=== PATIENT | female | born 1960 | race Caucasian/White ===

== ENCOUNTER 2016-11-15 13:03 | Emergency (ER) | payer OTHER ==
[~2016-11-15 13:03] MED LIST: FLUOXETINE HCL20 MG PO; NITROFURANTOIN50 MG PO; VICODIN EQUIVAL1 TAB PO; XANAX0.25 MG PO
--- NOTE | 2016-11-15 13:37 | ED ORDER SUMMARY ---
..... Patient: TAZ BURDEN OrderSheet [facility] VisitID: [id number] [address] [place] [address] 56y, F Registration Date/Time: 11/15/2016 ORDER SHEET Weight: 134.7 kg (stated) Allergies: Iodine, Morphine Sulfate, Ultram GENERAL ORDERS: Sling - arm (13:24 11/15/2016 [address]) MEDICATION ORDERS: Percocet PO 5/325 mg (HIGH ALERT MEDICATION, NOW) (13:19 11/15/2016 [address]) (Ack 13:31 SStone R.N.) (13:31 SStone R.N.) IV FLUIDS: ORDER SHEET NOTES: [Electronically signed by Patti Lucero P.A.-C (13:48 11/15/2016)] [Electronically signed by Arleth Blair R.N. (10:42 11/19/2016)] [Electronically locked/signed by Arleth Blair R.N. (10:42 11/19/2016)]
--- NOTE | 2016-11-15 13:37 | ED ORDER SUMMARY ---
..... Patient: TAZ BURDEN OrderSheet [facility] VisitID: [id number] [address] [place] [address] 56y, F Registration Date/Time: 11/15/2016 ORDER SHEET Weight: 134.7 kg (stated) Allergies: Iodine, Morphine Sulfate, Ultram GENERAL ORDERS: Sling - arm (13:24 11/15/2016 [address]) MEDICATION ORDERS: Percocet PO 5/325 mg (HIGH ALERT MEDICATION, NOW) (13:19 11/15/2016 [address]) (Ack 13:31 SStone R.N.) (13:31 SStone R.N.) IV FLUIDS: ORDER SHEET NOTES: [Electronically signed by Patti Lucero P.A.-C (13:48 11/15/2016)] [Electronically signed by Arleth Blair R.N. (10:42 11/19/2016)] [Electronically locked/signed by Arleth Blair R.N. (10:42 11/19/2016)]
--- NOTE | 2016-11-15 13:37 | ED CLINICAL REPORT ---
Clinical Report - Physicians/Mid Levels [facility] [address] [place] [address] 11/15/2016 13:07 [id number] Time Seen: 13:28 Nov 15 2016. Arrived- By private vehicle. Historian- patient. 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 Patient is experiencing moderate pain. Patient also notes injury to the neck. Patient denies injury to the head. ( fell on ice 2 weeks prior to arrival, and had her fianc fall on her as well. Injury and impact was to r. shoulder. Prior shoulder injury including prior surgery/ decompression). REVIEW OF SYSTEMS No tingling or numbness. All systems otherwise negative, except as recorded above. PAST HISTORY The patient's dominant hand is the right. She has had a prior injury to the same area (2x with prior surgical h/o). Tetanus immunization status is up-to-date. SOCIAL HISTORY No alcohol use or drug use. ADDITIONAL NOTES The nursing notes have been reviewed. PHYSICAL EXAM Vital Signs: 11/15/2016 13:12 BP: 154/69. HR: 62. RR: 18. O2 saturation: 100%. Temp: 98.2 F. Appearance: Alert. No acute distress. but apparent distress. Does not appear to be anxious. Head: Head atraumatic. ENT: Ears normal. Neck: Normal inspection. Neck supple. CVS: Normal heart rate and rhythm. Heart sounds normal. Respiratory: No respiratory distress. Breath sounds normal. Back: Normal inspection. No vertebral point tenderness. Skin: Skin warm. Normal skin color. Extremities: Extremity tenderness. Right clavicle area. No tenderness or swelling. Right shoulder. No tenderness or swelling. Right acromion: No tenderness or swelling. Right acromio-clavicular joint: mild tenderness. No swelling, laceration or abrasion. Right proximal humerus: No tenderness or swelling. Shoulder injury present. (pain with elevation, no deformity, good distal sensation.). Neuro, Vascular and Tendons: Sensory deficit present. Motor deficit present. Vascular deficit present. Tendon deficit present. Tendon visualized, uninjured. Neuro: Oriented X 3. PROGRESS AND PROCEDURES PROCEDURES (sling, r. shoulder, ns intact). Course of Care: at this time attempted to call patient's primary care office to see in regards to MRI order, and to attempt to schedule such outpatient. Had lengthy discussion with patient in regard to emergency room versus non-emergent MRI, and at this time unable to complete her MRI of her shoulder status post a fall 2 weeks previously. Patient was offered an x-ray, however I do suspect this would give us minimal increase and insight into her injury as this occurred 2 weeks previously, and fracture is low suspicion was rather internal injury including rotator cuff injury most likely. Patient is stable. Physical exam findings are improved. Symptoms better. Patient/family counseled. Disposition: Discharged. CLINICAL IMPRESSION Sprain of the right AC joint and rotator cuff. INSTRUCTIONS Apply ice. Elevate affected areas above chest level. Limit use of your hand. ([place]: [phone]). Prescription Medications: Hydrocodone/APAP 7.5mg / 325mg: take 1 orally every 6 hours as needed for pain. Dispense twelve (12). No refill. Follow-up: Follow up with a specialist. Understanding of the discharge instructions verbalized. (Electronically signed by Patti Lucero P.A.-C 11/15/2016 13:48)
--- NOTE | 2016-11-15 13:37 | ED CLINICAL REPORT ---
Clinical Report - Physicians/Mid Levels [facility] [address] [place] [address] 11/15/2016 13:07 [id number] Time Seen: 13:28 Nov 15 2016. Arrived- By private vehicle. Historian- patient. 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 Patient is experiencing moderate pain. Patient also notes injury to the neck. Patient denies injury to the head. ( fell on ice 2 weeks prior to arrival, and had her fianc fall on her as well. Injury and impact was to r. shoulder. Prior shoulder injury including prior surgery/ decompression). REVIEW OF SYSTEMS No tingling or numbness. All systems otherwise negative, except as recorded above. PAST HISTORY The patient's dominant hand is the right. She has had a prior injury to the same area (2x with prior surgical h/o). Tetanus immunization status is up-to-date. SOCIAL HISTORY No alcohol use or drug use. ADDITIONAL NOTES The nursing notes have been reviewed. PHYSICAL EXAM Vital Signs: 11/15/2016 13:12 BP: 154/69. HR: 62. RR: 18. O2 saturation: 100%. Temp: 98.2 F. Appearance: Alert. No acute distress. but apparent distress. Does not appear to be anxious. Head: Head atraumatic. ENT: Ears normal. Neck: Normal inspection. Neck supple. CVS: Normal heart rate and rhythm. Heart sounds normal. Respiratory: No respiratory distress. Breath sounds normal. Back: Normal inspection. No vertebral point tenderness. Skin: Skin warm. Normal skin color. Extremities: Extremity tenderness. Right clavicle area. No tenderness or swelling. Right shoulder. No tenderness or swelling. Right acromion: No tenderness or swelling. Right acromio-clavicular joint: mild tenderness. No swelling, laceration or abrasion. Right proximal humerus: No tenderness or swelling. Shoulder injury present. (pain with elevation, no deformity, good distal sensation.). Neuro, Vascular and Tendons: Sensory deficit present. Motor deficit present. Vascular deficit present. Tendon deficit present. Tendon visualized, uninjured. Neuro: Oriented X 3. PROGRESS AND PROCEDURES PROCEDURES (sling, r. shoulder, ns intact). Course of Care: at this time attempted to call patient's primary care office to see in regards to MRI order, and to attempt to schedule such outpatient. Had lengthy discussion with patient in regard to emergency room versus non-emergent MRI, and at this time unable to complete her MRI of her shoulder status post a fall 2 weeks previously. Patient was offered an x-ray, however I do suspect this would give us minimal increase and insight into her injury as this occurred 2 weeks previously, and fracture is low suspicion was rather internal injury including rotator cuff injury most likely. Patient is stable. Physical exam findings are improved. Symptoms better. Patient/family counseled. Disposition: Discharged. CLINICAL IMPRESSION Sprain of the right AC joint and rotator cuff. INSTRUCTIONS Apply ice. Elevate affected areas above chest level. Limit use of your hand. ([place]: [phone]). Prescription Medications: Hydrocodone/APAP 7.5mg / 325mg: take 1 orally every 6 hours as needed for pain. Dispense twelve (12). No refill. Follow-up: Follow up with a specialist. Understanding of the discharge instructions verbalized. (Electronically signed by Patti Lucero P.A.-C 11/15/2016 13:48)
--- NOTE | 2016-11-15 13:37 | ED NURSING NOTES ---
Clinical Report - Nurses [facility] [address] [place] [address] 11/15/2016 13:07 [id number] Triage time 13:16 Nov 15 2016. Acuity: LEVEL 4. Chief Complaint: RIGHT UPPER EXTREMITY PAIN. Alert. No acute distress. YENI COMA SCORE: [place] Coma Scale: 15- eyes open spontaneously (4); best verbal response- oriented x 4 (5); best motor response- obeys commands (6). --13:21 Patience Higgins R.N. 13:12 11/15/16. BP: 154/69. HR: 62. RR: 18. O2 saturation: 100%. Temp: 98.2 F. Pain level now 9/10. --13:21 Patience Higgins R.N. Weight: 134.7 kg stated. Height/Length: 65 inches Per Patient. BMI: 49.5. --13:12 Patience Higgins R.N. Medications Aleve Oral, as needed. FLUoxetine HCl Oral 20 mg, daily. MSM Oral. Xanax Oral 0.25 mg, as needed. --13:18 Patience Higgins R.N. Ibuprofen Oral, as needed. --13:19 Patience Higgins R.N. Medication/allergy information source: the patient. --13:21 Patience Higgins R.N. Allergies Iodine. Morphine Sulfate. Ultram. --13:18 Patience Higgins R.N. History Arrived by private vehicle. Historian: patient. Accompanied by family. Primary physician (Dr. Babcock). ( Hx of Right Shoulder pain, previous injuries. States she fell onto it about 2 weeks ago after slipping on the ice. Pt has seen Dr. Babcock and has plans for outpatient MRI. Not scheduled yet. Pt arrives here today because the pain is so bad.). Injury occurred. Location of injuries: right shoulder. This occurred (2 weeks). Occurred at home. 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 PAST MEDICAL HX: Denies current . Has not received seasonal influenza immunization. SOCIAL HX: Never smoker. No alcohol use or drug use. No infectious disease exposure. FALL RISK ASSESSMENT: Fall risk assessment completed. No fall risk identified. NUTRITIONAL RISK ASSESSMENT: The nutritional risk assessment revealed no deficiencies. FUNCTIONAL ASSESSMENT: Functional assessment: no impairments noted. LEARNING NEEDS ASSESSMENT: The learning needs assessment revealed no barriers. SKIN INTEGRITY ASSESSMENT: Skin integrity risk assessment completed. No skin integrity risk identified. --13:21 Patience Higgins R.N. PROBLEMS: Ovarian Cyst. UTI - Urinary Tract Infection. Obesity. Substance Abuse. Hypertension. Ureterolithiasis. Gallstone(s). Urinary Calculi. PTSD. Depression. Anxiety Reaction. Nephrolithiasis. Muscle Strain, Upper Extremity. Sprain. Contusion. Arthritis. Tetanus Status. LNMP - Last Normal Menstrual Period. Back Pain. --13:20 Patience Higgins R.N. ADDITIONAL SURGERIES: Abdominal Hernia Repair. Appendectomy. Bariatric Surgery. Cholecystectomy. Hernia Repair. Lap Band. Neck Surgery. Previous Abdominal Surgery. Salpingectomy. Shoulder Surgery. Tonsillectomy. Tubal Ligation. Uterine ablation. --13:20 Patience Higgins R.N. Interventions ID band on patient. To room. --13:21 Patience Higgins R.N. PHYSICAL ASSESSMENT Ambulatory to room. GENERAL / NEURO / PSYCH: Alert. Appears in no acute distress. EXTREMITIES: Limited ROM present. Neuro-vascular status intact to the extremity. No upper extremity edema. Right shoulder. --13:28 Patience Higgins R.N. SKIN: Skin is warm and dry. --13:28 Patience Higgins R.N. NURSING PROGRESS NOTES ( Pt has been seen by PA. Plan for Dr. Babcock follow up and continue plan of care.). --13:29 Patience Higgins R.N. 13:31 11/15/2016 Percocet (Oxycodone-Acetaminophen) PO 10/650 mg Tablets 1 tab given. --13:31 Marybeth Fraser R.N. ( Called Dr. Babcock's off ice and left brief message regarding a pt of theirs asking for an MRI. Please call the pt.). --13:34 Patience Higgins R.N. 13:40. Sling applied to right arm by server support technician; distal pulses intact, sensation intact and motor function within normal limits. --13:51 Jody Unger. DISPOSITION / DISCHARGE Departure time: 13:34. Condition at departure: unchanged and stable. Reviewed warnings. Reviewed medication(s) side effects information. Prescription(s) given to the patient. Patient verbalized understanding. Written instructions provided in Estonian. The patient was discharged by the physician early childhood teacher assistant. She was discharged home and accompanied by family. She left the Emergency Department ambulatory and via private vehicle. Family member driving. Patient has no belongings. --13:36 Marybeth Fraser R.N. 13:34 11/15/16. BP: 154/69. HR: 62. RR: 18. O2 saturation: 100%. Temp: 98.2 F. Pain level now: 06/23. --13:36 Marybeth Fraser R.N. Locked/Released at 11/19/2016 10:42 by Arleth Blair R.N.
--- NOTE | 2016-11-15 13:37 | ED NURSING NOTES ---
Clinical Report - Nurses [facility] [address] [place] [address] 11/15/2016 13:07 [id number] TRI[facility] Triage time 13:16 Nov 15 2016. Acuity: LEVEL 4. Chief Complaint: RIGHT UPPER EXTREMITY PAIN. Alert. No acute distress. YENI COMA SCORE: [place] Coma Scale: 15- eyes open spontaneously (4); best verbal response- oriented x 4 (5); best motor response- obeys commands (6). --13:21 Patience Higgins R.N. 13:12 11/15/16. BP: 154/69. HR: 62. RR: 18. O2 saturation: 100%. Temp: 98.2 F. Pain level now 9/10. --13:21 Patience Higgins R.N. Weight: 134.7 kg stated. Height/Length: 65 inches Per Patient. BMI: 49.5. --13:12 Patience Higgins R.N. Medications Aleve Oral, as needed. FLUoxetine HCl Oral 20 mg, daily. MSM Oral. Xanax Oral 0.25 mg, as needed. --13:18 Patience Higgins R.N. Ibuprofen Oral, as needed. --13:19 Patience Higgins R.N. Medication/allergy information source: the patient. --13:21 Patience Higgins R.N. Allergies Iodine. Morphine Sulfate. Ultram. --13:18 Patience Higgins R.N. History Arrived by private vehicle. Historian: patient. Accompanied by family. Primary physician (Dr. Babcock). ( Hx of Right Shoulder pain, previous injuries. States she fell onto it about 2 weeks ago after slipping on the ice. Pt has seen Dr. Babcock and has plans for outpatient MRI. Not scheduled yet. Pt arrives here today because the pain is so bad.). Injury occurred. Location of injuries: right shoulder. This occurred (2 weeks). Occurred at home. 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 PAST MEDICAL HX: Denies current . Has not received seasonal influenza immunization. SOCIAL HX: Never smoker. No alcohol use or drug use. No infectious disease exposure. FALL RISK ASSESSMENT: Fall risk assessment completed. No fall risk identified. NUTRITIONAL RISK ASSESSMENT: The nutritional risk assessment revealed no deficiencies. FUNCTIONAL ASSESSMENT: Functional assessment: no impairments noted. LEARNING NEEDS ASSESSMENT: The learning needs assessment revealed no barriers. SKIN INTEGRITY ASSESSMENT: Skin integrity risk assessment completed. No skin integrity risk identified. --13:21 Patience Higgins R.N. PROBLEMS: Ovarian Cyst. UTI - Urinary Tract Infection. Obesity. Substance Abuse. Hypertension. Ureterolithiasis. Gallstone(s). Urinary Calculi. PTSD. Depression. Anxiety Reaction. Nephrolithiasis. Muscle Strain, Upper Extremity. Sprain. Contusion. Arthritis. Tetanus Status. LNMP - Last Normal Menstrual Period. Back Pain. --13:20 Patience Higgins R.N. ADDITIONAL SURGERIES: Abdominal Hernia Repair. Appendectomy. Bariatric Surgery. Cholecystectomy. Hernia Repair. Lap Band. Neck Surgery. Previous Abdominal Surgery. Salpingectomy. Shoulder Surgery. Tonsillectomy. Tubal Ligation. Uterine ablation. --13:20 Patience Higgins R.N. Interventions ID band on patient. To room. --13:21 Patience Higgins R.N. PHYSICAL ASSESSMENT Ambulatory to room. GENERAL / NEURO / PSYCH: Alert. Appears in no acute distress. EXTREMITIES: Limited ROM present. Neuro-vascular status intact to the extremity. No upper extremity edema. Right shoulder. --13:28 Patience Higgins R.N. SKIN: Skin is warm and dry. --13:28 Patience Higgins R.N. NURSING PROGRESS NOTES ( Pt has been seen by PA. Plan for Dr. Babcock follow up and continue plan of care.). --13:29 Patience Hgigins R.N. 13:31 11/15/2016 Percocet (Oxycodone-Acetaminophen) PO 10/650 mg Tablets 1 tab given. --13:31 Marybeth Fraser R.N. ( Called Dr. Babcock's off ice and left brief message regarding a pt of theirs asking for an MRI. Please call the pt.). --13:34 Patience Higgins R.N. 13:40. Sling applied to right arm by rim technician; distal pulses intact, sensation intact and motor function within normal limits. --13:51 Jody Unger. DISPOSITION / DISCHARGE Departure time: 13:34. Condition at departure: unchanged and stable. Reviewed warnings. Reviewed medication(s) side effects information. Prescription(s) given to the patient. Patient verbalized understanding. Written instructions provided in Danish. The patient was discharged by the physician assistant inventory manager. She was discharged home and accompanied by family. She left the Emergency Department ambulatory and via private vehicle. Family member driving. Patient has no belongings. --13:36 Marybeth Fraser R.N. 13:34 11/15/16. BP: 154/69. HR: 62. RR: 18. O2 saturation: 100%. Temp: 98.2 F. Pain level now: 06/23. --13:36 Marybeth Fraser R.N. Locked/Released at 11/19/2016 10:42 by Arleth Blair R.N.
--- NOTE | 2016-11-19 10:43 | ED DISCHARGE INSTRUCTIONS ---
Patient: TAZ BURDEN General Instructions [facility] VisitID: [id number] [address] [place] [address] 56y, F Registration Date/Time: 11/15/2016 Sprain of the right AC joint and rotator cuff. INSTRUCTIONS Apply ice. Elevate affected areas above chest level. Limit use of your hand. ([place]: [phone]). Prescription Medications: Hydrocodone/APAP 7.5mg / 325mg: take 1 orally every 6 hours as needed for pain. Dispense twelve (12). No refill. Follow-up: Follow up with a specialist. Understanding of the discharge instructions verbalized. ADDITIONAL INFORMATION Shoulder Sprain A sprain is a stretching or tearing of the ligaments that hold a joint together. A sprain may take up to six weeks to fully heal, depending on how severe it is. Moderate to severe shoulder sprains are treated with a sling or shoulder immobilizer. Minor sprains can be treated without any special support. Home care The following guidelines will help you care for your injury at home: If a sling was provided, leave it in place for the time advised by your doctor. If you are unsure how long to wear it, ask for advice. If the sling becomes loose, adjust it so that your forearm is level with the ground and the shoulder feels well supported. Apply an ice pack (ice cubes in a plastic bag, wrapped in a thin towel) over the injured area for 20 minutes every 12 hours the first day. Continue with ice packs 34 times a day for the next two days, then as needed for the relief of pain and swelling. You may use acetaminophen or ibuprofen to control pain, unless another pain medicine was prescribed.If you have chronic liver or kidney disease or ever had a stomach ulcer or GI bleeding, talk with your doctor before using these medicines. Shoulder joints become stiff if left in a sling for too long. Range of motion exercises should usually be started within the first ten days after injury. Consult your doctor on what type of exercises to do and how soon to start. Follow-up care Follow up with your doctor as directed. Any X-rays you had today dont show any broken bones, breaks, or fractures. Sometimes fractures dont show up on the first X-ray. Bruises and sprains can sometimes hurt as much as a fracture. These injuries can take time to heal completely. If your symptoms dont improve or they get worse, talk with your doctor. You may need a repeat X-ray. When to seek medical care Get prompt medical attention if any of the following occur: Increasing shoulder pain or arm swelling Fingers become cold, blue, numb, or tingly Large amount of bruising of the shoulder or upper arm Hydrocodone Bitartrate, Acetaminophen Oral tablet What is this medicine? ACETAMINOPHEN; HYDROCODONE (a set a JO-ANN tae fen; marv droe KOE done) is a pain reliever. It is used to treat mild to moderate pain. How should I use this medicine? Take this medicine by mouth. Swallow it with a full glass of water. Follow the directions on the prescription label. If the medicine upsets your stomach, take the medicine with food or milk. Do not take more than you are told to take. Talk to your cleaning and maintenance worker regarding the use of this medicine in children. This medicine is not approved for use in children. What side effects may I notice from receiving this medicine? Side effects that you should report to your doctor or health career discovery teacher as soon as possible: allergic reactions like skin rash, itching or hives, swelling of the face, lips, or tongue breathing problems confusion feeling faint or lightheaded, falls stomach pain yellowing of the eyes or skin Side effects that usually do not require medical attention (report to your doctor or health career discovery teacher if they continue or are bothersome): nausea, vomiting stomach upset What may interact with this medicine? alcohol antihistamines isoniazid medicines for depression, anxiety, or psychotic disturbances medicines for sleep muscle relaxants naltrexone narcotic medicines (opiates) for pain phenobarbital ritonavir tramadol What if I miss a dose? If you miss a dose, take it as soon as you can. If it is almost time for your next dose, take only that dose. Do not take double or extra doses. Where should I keep my medicine? Keep out of the reach of children. This medicine can be abused. Keep your medicine in a safe place to protect it from theft. Do not share this medicine with anyone. Selling or giving away this medicine is dangerous and against the law. Store at room temperature between 15 and 30 degrees C (59 and 86 degrees F). Protect from light. Keep container tightly closed. Throw away any unused medicine after the expiration date. Discard unused medicine and used packaging carefully. Pets and children can be harmed if they find used or lost packages. What should I tell my health care provider before I take this medicine? They need to know if you have any of these conditions: brain tumor Crohn's disease, inflammatory bowel disease, or ulcerative colitis drink more than 3 alcohol-containing drinks per day drug abuse or addiction head injury heart or circulation problems kidney disease or problems going to the bathroom liver disease lung disease, asthma, or breathing problems an unusual or allergic reaction to acetaminophen, hydrocodone, other opioid analgesics, other medicines, foods, dyes, or preservatives or trying to get breast-feeding What should I watch for while using this medicine? Tell your doctor or health career discovery teacher if your pain does not go away, if it gets worse, or if you have new or a different type of pain. You may develop tolerance to the medicine. Tolerance means that you will need a higher dose of the medicine for pain relief. Tolerance is normal and is expected if you take the medicine for a long time. Do not suddenly stop taking your medicine because you may develop a severe reaction. Your body becomes used to the medicine. This does NOT mean you are addicted. Addiction is a behavior related to getting and using a drug for a non-medical reason. If you have pain, you have a medical reason to take pain medicine. Your doctor will tell you how much medicine to take. If your doctor wants you to stop the medicine, the dose will be slowly lowered over time to avoid any side effects. You may get drowsy or dizzy when you first start taking the medicine or change doses. Do not drive, use machinery, or do anything that may be dangerous until you know how the medicine affects you. Stand or sit up slowly. There are different types of narcotic medicines (opiates) for pain. If you take more than one type at the same time, you may have more side effects. Give your health care provider a list of all medicines you use. Your doctor will tell you how much medicine to take. Do not take more medicine than directed. Call emergency for help if you have problems breathing. The medicine will cause constipation. Try to have a bowel movement at least every 2 to 3 days. If you do not have a bowel movement for 3 days, call your doctor or health career discovery teacher. Too much acetaminophen can be very dangerous. Do not take Tylenol (acetaminophen) or medicines that contain acetaminophen with this medicine. Many non-prescription medicines contain acetaminophen. Always read the labels carefully. You have been given the following additional information: Shoulder Sprain Hydrocodone Bitartrate, Acetaminophen Oral tablet Limit use of your hand. (Electronically signed by Patti Lucero P.A.-C 11/15/2016 13:48)
--- NOTE | 2016-11-19 10:43 | ED DISCHARGE INSTRUCTIONS ---
Patient: TAZ BURDEN General Instructions [facility] VisitID: [id number] [address] [place] [address] 56y, F Registration Date/Time: 11/15/2016 Sprain of the right AC joint and rotator cuff. INSTRUCTIONS Apply ice. Elevate affected areas above chest level. Limit use of your hand. ([place]: [phone]). Prescription Medications: Hydrocodone/APAP 7.5mg / 325mg: take 1 orally every 6 hours as needed for pain. Dispense twelve (12). No refill. Follow-up: Follow up with a specialist. Understanding of the discharge instructions verbalized. ADDITIONAL INFORMATION Shoulder Sprain A sprain is a stretching or tearing of the ligaments that hold a joint together. A sprain may take up to six weeks to fully heal, depending on how severe it is. Moderate to severe shoulder sprains are treated with a sling or shoulder immobilizer. Minor sprains can be treated without any special support. Home care The following guidelines will help you care for your injury at home: If a sling was provided, leave it in place for the time advised by your doctor. If you are unsure how long to wear it, ask for advice. If the sling becomes loose, adjust it so that your forearm is level with the ground and the shoulder feels well supported. Apply an ice pack (ice cubes in a plastic bag, wrapped in a thin towel) over the injured area for 20 minutes every 12 hours the first day. Continue with ice packs 34 times a day for the next two days, then as needed for the relief of pain and swelling. You may use acetaminophen or ibuprofen to control pain, unless another pain medicine was prescribed.If you have chronic liver or kidney disease or ever had a stomach ulcer or GI bleeding, talk with your doctor before using these medicines. Shoulder joints become stiff if left in a sling for too long. Range of motion exercises should usually be started within the first ten days after injury. Consult your doctor on what type of exercises to do and how soon to start. Follow-up care Follow up with your doctor as directed. Any X-rays you had today dont show any broken bones, breaks, or fractures. Sometimes fractures dont show up on the first X-ray. Bruises and sprains can sometimes hurt as much as a fracture. These injuries can take time to heal completely. If your symptoms dont improve or they get worse, talk with your doctor. You may need a repeat X-ray. When to seek medical care Get prompt medical attention if any of the following occur: Increasing shoulder pain or arm swelling Fingers become cold, blue, numb, or tingly Large amount of bruising of the shoulder or upper arm Hydrocodone Bitartrate, Acetaminophen Oral tablet What is this medicine? ACETAMINOPHEN; HYDROCODONE (a set a JO-ANN tae fen; marv droe KOE done) is a pain reliever. It is used to treat mild to moderate pain. How should I use this medicine? Take this medicine by mouth. Swallow it with a full glass of water. Follow the directions on the prescription label. If the medicine upsets your stomach, take the medicine with food or milk. Do not take more than you are told to take. Talk to your size worker regarding the use of this medicine in children. This medicine is not approved for use in children. What side effects may I notice from receiving this medicine? Side effects that you should report to your doctor or health care taker as soon as possible: allergic reactions like skin rash, itching or hives, swelling of the face, lips, or tongue breathing problems confusion feeling faint or lightheaded, falls stomach pain yellowing of the eyes or skin Side effects that usually do not require medical attention (report to your doctor or health care taker if they continue or are bothersome): nausea, vomiting stomach upset What may interact with this medicine? alcohol antihistamines isoniazid medicines for depression, anxiety, or psychotic disturbances medicines for sleep muscle relaxants naltrexone narcotic medicines (opiates) for pain phenobarbital ritonavir tramadol What if I miss a dose? If you miss a dose, take it as soon as you can. If it is almost time for your next dose, take only that dose. Do not take double or extra doses. Where should I keep my medicine? Keep out of the reach of children. This medicine can be abused. Keep your medicine in a safe place to protect it from theft. Do not share this medicine with anyone. Selling or giving away this medicine is dangerous and against the law. Store at room temperature between 15 and 30 degrees C (59 and 86 degrees F). Protect from light. Keep container tightly closed. Throw away any unused medicine after the expiration date. Discard unused medicine and used packaging carefully. Pets and children can be harmed if they find used or lost packages. What should I tell my health care provider before I take this medicine? They need to know if you have any of these conditions: brain tumor Crohn's disease, inflammatory bowel disease, or ulcerative colitis drink more than 3 alcohol-containing drinks per day drug abuse or addiction head injury heart or circulation problems kidney disease or problems going to the bathroom liver disease lung disease, asthma, or breathing problems an unusual or allergic reaction to acetaminophen, hydrocodone, other opioid analgesics, other medicines, foods, dyes, or preservatives or trying to get breast-feeding What should I watch for while using this medicine? Tell your doctor or health care taker if your pain does not go away, if it gets worse, or if you have new or a different type of pain. You may develop tolerance to the medicine. Tolerance means that you will need a higher dose of the medicine for pain relief. Tolerance is normal and is expected if you take the medicine for a long time. Do not suddenly stop taking your medicine because you may develop a severe reaction. Your body becomes used to the medicine. This does NOT mean you are addicted. Addiction is a behavior related to getting and using a drug for a non-medical reason. If you have pain, you have a medical reason to take pain medicine. Your doctor will tell you how much medicine to take. If your doctor wants you to stop the medicine, the dose will be slowly lowered over time to avoid any side effects. You may get drowsy or dizzy when you first start taking the medicine or change doses. Do not drive, use machinery, or do anything that may be dangerous until you know how the medicine affects you. Stand or sit up slowly. There are different types of narcotic medicines (opiates) for pain. If you take more than one type at the same time, you may have more side effects. Give your health care provider a list of all medicines you use. Your doctor will tell you how much medicine to take. Do not take more medicine than directed. Call emergency for help if you have problems breathing. The medicine will cause constipation. Try to have a bowel movement at least every 2 to 3 days. If you do not have a bowel movement for 3 days, call your doctor or health care taker. Too much acetaminophen can be very dangerous. Do not take Tylenol (acetaminophen) or medicines that contain acetaminophen with this medicine. Many non-prescription medicines contain acetaminophen. Always read the labels carefully. You have been given the following additional information: Shoulder Sprain Hydrocodone Bitartrate, Acetaminophen Oral tablet Limit use of your hand. (Electronically signed by Patti Lucero P.A.-C 11/15/2016 13:48)
--- NOTE | 2016-11-19 10:43 | ED MAR SUMMARY ---
..... Medication Administration Record [facility] [address] [place] [address] Patient: TAZ BURDEN Visit ID: [id number] 56y, F Weight: 134.7 kg Height/Length: 65 in BMI: 49.5 ALLERGIES: Iodine, Morphine Sulfate, Ultram Given 13:31 11/15/2016 Marybeth Fraser R.N. Medication Administered: PERCOCET [PO] (OXYCODONE-ACETAMINOPHEN), Dose: 1 tab 10/650 mg Tablets PO. Medication Ordered: Percocet PO 5/325 mg (HIGH ALERT MEDICATION, NOW).
--- NOTE | 2016-11-19 10:43 | ED MAR SUMMARY ---
..... Medication Administration Record [facility] [address] [place] [address] Patient: TAZ BURDEN Visit ID: [id number] 56y, F Weight: 134.7 kg Height/Length: 65 in BMI: 49.5 ALLERGIES: Iodine, Morphine Sulfate, Ultram Given 13:31 11/15/2016 Marybeth Fraser R.N. Medication Administered: PERCOCET [PO] (OXYCODONE-ACETAMINOPHEN), Dose: 1 tab 10/650 mg Tablets PO. Medication Ordered: Percocet PO 5/325 mg (HIGH ALERT MEDICATION, NOW).
--- NOTE | 2016-11-19 10:43 | ED MED RECONCILIATION SUMMARY ---
Patient: TAZ BURDEN Medication Reconciliation Report [facility] VisitID: [id number] [address] [place] [address] 56y, F Registration Date/Time: 11/15/2016 Weight: 134.7 kg Height/Length: 65 in. BMI: 49.5 ALLERGIES: Iodine, Morphine Sulfate, Ultram The patient's Home Medications are listed below: THE FOLLOWING MEDICATIONS NEED TO BE RECONCILED: Aleve Oral FLUoxetine HCl Oral 20 mg, daily Ibuprofen Oral MSM Oral Xanax Oral 0.25 mg The source(s) of the original Home Medication information: patient The following Medications were given to the patient in the Emergency Department: Percocet [PO] PO 1 tab, administered: 11/15/2016 1:31:00 PM The following Medications were prescribed to the patient: Hydrocodone/APAP 7.5mg / 325mg: take 1 orally every 6 hours as needed for pain. Dispense twelve (12). No refill. -- Patti Lucero P.A.-C
--- NOTE | 2016-11-19 10:43 | ED MED RECONCILIATION SUMMARY ---
Patient: TAZ BURDEN Medication Reconciliation Report [facility] VisitID: [id number] [address] [place] [address] 56y, F Registration Date/Time: 11/15/2016 Weight: 134.7 kg Height/Length: 65 in. BMI: 49.5 ALLERGIES: Iodine, Morphine Sulfate, Ultram The patient's Home Medications are listed below: THE FOLLOWING MEDICATIONS NEED TO BE RECONCILED: Aleve Oral FLUoxetine HCl Oral 20 mg, daily Ibuprofen Oral MSM Oral Xanax Oral 0.25 mg The source(s) of the original Home Medication information: patient The following Medications were given to the patient in the Emergency Department: Percocet [PO] PO 1 tab, administered: 11/15/2016 1:31:00 PM The following Medications were prescribed to the patient: Hydrocodone/APAP 7.5mg / 325mg: take 1 orally every 6 hours as needed for pain. Dispense twelve (12). No refill. -- Patti Lucero P.A.-C
== END 2016-11-15 13:35 | disposition home or self-care (01) ==
LOC: ED SRH 13:03
DX: S43.51XA Sprain of right acromioclavicular joint, initial encounter (principal); S43.421A Sprain of right rotator cuff capsule, initial encounter; W00.0XXA Fall on same level due to ice and snow, initial encounter; Y93.9 Activity, unspecified; Y99.9 Unspecified external cause status; Y92.410 Unspecified street and highway as the place of occurrence of the external cause

== ENCOUNTER 2016-12-11 15:10 | Outpatient (CLI) | payer OTHER ==
--- NOTE | 2016-12-11 18:05 | DIAGNOSTIC IMAGING REPORT ---
PROCEDURE: XR SHOULDER INJECTION (PRE MR) INDICATION: Increasing chronic right shoulder pain. History of prior surgery. TECHNIQUE: The patient was advised of the usual risks and complications including infection, bleeding and allergy. The patient gives history of allergy to a topical iodine substances. Because of this, the study was performed without iodinated contrast material. Supine RPO position. Following sterile preparation and 1% lidocaine anesthetic, fluoroscopic guidance (4.1 minutes, 637.37 mGy) was utilized to place a 22-gauge spinal needle into the ventral right glenohumeral joint. A 10.1 mL solution (2.5 mL 1% lidocaine, 2.5 mL 0.5% Marcaine, 5 mL normal saline, 0.1 mL gadolinium) was infused. Subsequently, 2 mL 40 mg/mL Kenalog was infused and the needle was withdrawn. COMPARISON: Comparison made radiographs of the right shoulder from [facility] on 11/14/2016. FINDINGS: Single AP view was obtained. There is chronic grade 3 acromioclavicular joint separation. Iodinated contrast was not injected due to contrast allergy. The patient tolerated the procedure reasonably well and was transferred to MRI in satisfactory condition with instructions to resume routine activity the following day, and to call for any untoward symptoms (increasing pain/swelling). IMPRESSION: 1. Fluoroscopically guided diagnostic/therapeutic injection of the right glenohumeral joint (pre MRI). 2. MR arthrography is pending.
--- NOTE | 2016-12-11 18:26 | DIAGNOSTIC IMAGING REPORT ---
PROCEDURE: MR UPPER EXT JOINT W/CONT-RT INDICATION: CHRONIC RIGHT SHOULDER PAIN TECHNIQUE: Intraarticular contrast/gadolinium injected earlier in the day. PD, FAT-SAT PD, and FAT-SAT T1 sagittal oblique images. PD, FAT-SAT PD, and FAT-SAT T1 coronal oblique images. T1, FAT-SAT T1, and gradient axial images. COMPARISON: Comparison is made to radiographs of the right shoulder from [facility] (11/14/2016) and noncontrast MRI of the right shoulder from [facility] on 07/29/2013. FINDINGS: Mild to moderate intermittent motion require repeat sequences. Status post acromioplasty. There is a chronic grade 3 acromioclavicular joint separation with disruption of the coracoclavicular ligament. There is no evidence of coracoid impingement (13 mm). There is mild thickening and tendinosis of the lateral and ventral rotator cuff, but no evidence of rotator cuff tear. Biceps tendon appears intact. Findings suggest probable tear of the superior cartilaginous labrum (SLAP lesion). There is a type 3 anterior capsular attachment mild chronic thickening of the middle glenohumeral ligament (appears intact). Inferior and superior glenohumeral ligaments appear intact. There are mild degenerative change of the right glenohumeral joint with mild cranial and posterior subluxation of the humeral, suggesting glenohumeral joint instability. IMPRESSION: 1. Mild motion partially limits study. 2. Status post acromioplasty. 3. Chronic grade 3 right acromioclavicular joint separation. 4. Mild tendinosis of the lateral and ventral rotator cuff, but no evidence of rotator cuff tear. 5. Findings suggest probable tear of the superior cartilaginous labrum (SLAP lesion). 6. Mild degenerative change of the right glenohumeral joint. 7. Type 3 anterior capsular attachment with mild posterior and cranial subluxation of the humeral head suggests chronic glenohumeral joint instability.
--- NOTE | 2016-12-11 18:26 | DIAGNOSTIC IMAGING REPORT ---
PROCEDURE: MR UPPER EXT JOINT W/CONT-RT INDICATION: CHRONIC RIGHT SHOULDER PAIN TECHNIQUE: Intraarticular contrast/gadolinium injected earlier in the day. PD, FAT-SAT PD, and FAT-SAT T1 sagittal oblique images. PD, FAT-SAT PD, and FAT-SAT T1 coronal oblique images. T1, FAT-SAT T1, and gradient axial images. COMPARISON: Comparison is made to radiographs of the right shoulder from [facility] (11/14/2016) and noncontrast MRI of the right shoulder from [facility] on 07/29/2013. FINDINGS: Mild to moderate intermittent motion require repeat sequences. Status post acromioplasty. There is a chronic grade 3 acromioclavicular joint separation with disruption of the coracoclavicular ligament. There is no evidence of coracoid impingement (13 mm). There is mild thickening and tendinosis of the lateral and ventral rotator cuff, but no evidence of rotator cuff tear. Biceps tendon appears intact. Findings suggest probable tear of the superior cartilaginous labrum (SLAP lesion). There is a type 3 anterior capsular attachment mild chronic thickening of the middle glenohumeral ligament (appears intact). Inferior and superior glenohumeral ligaments appear intact. There are mild degenerative change of the right glenohumeral joint with mild cranial and posterior subluxation of the humeral, suggesting glenohumeral joint instability. IMPRESSION: 1. Mild motion partially limits study. 2. Status post acromioplasty. 3. Chronic grade 3 right acromioclavicular joint separation. 4. Mild tendinosis of the lateral and ventral rotator cuff, but no evidence of rotator cuff tear. 5. Findings suggest probable tear of the superior cartilaginous labrum (SLAP lesion). 6. Mild degenerative change of the right glenohumeral joint. 7. Type 3 anterior capsular attachment with mild posterior and cranial subluxation of the humeral head suggests chronic glenohumeral joint instability.
== END 2016-12-11 23:00 ==
LOC: XR SRH 15:10
PROC: BP0 Imaging, Non-Axial Upper Bones, Plain Radiography (ICD-10-PCS; principal; 2016-12-11)
DX: R93.7 Abnormal findings on diagnostic imaging of other parts of musculoskeletal system (principal); M75.81 Other shoulder lesions, right shoulder; M19.011 Primary osteoarthritis, right shoulder